=== PATIENT | female | born 1935 | race Caucasian/White ===

== ENCOUNTER → 2024-03-25 14:11 | Outpatient (REF) | payer OTHER, SELFPAY | LOC: RAD 14:11 | PROVIDERS: ATTENDING PHYSICIAN Internal Medicine Cardiovascular Disease; FAMILY PHYSICIAN Family Medicine | DX: R06.00 Dyspnea, unspecified (principal); R79.89 Other specified abnormal findings of blood chemistry | CPT/HCPCS: 71275; Q9967 ==

== ENCOUNTER → 2024-04-14 11:13 | Outpatient (REF) | payer OTHER, SELFPAY | LOC: HWRCS 11:13 | PROVIDERS: ATTENDING PHYSICIAN Internal Medicine Cardiovascular Disease; FAMILY PHYSICIAN Family Medicine | DX: R00.2 Palpitations (principal) | CPT/HCPCS: 93306 ==

== ENCOUNTER → 2024-04-21 13:28 | Outpatient (REF) | payer OTHER, SELFPAY | LOC: RAD 13:28 | PROVIDERS: ATTENDING PHYSICIAN Internal Medicine Cardiovascular Disease; FAMILY PHYSICIAN Family Medicine | DX: J98.6 Disorders of diaphragm (principal) | CPT/HCPCS: 71046; 76000 ==

== ENCOUNTER → 2025-02-02 10:06 | Outpatient (REF) | payer OTHER, SELFPAY | LOC: RAD 10:06 | PROVIDERS: ATTENDING PHYSICIAN Internal Medicine Clinical Cardiac Electrophysiology; FAMILY PHYSICIAN Family Medicine | DX: R06.09 Other forms of dyspnea (principal) | CPT/HCPCS: 75574; Q9967 ==

== ENCOUNTER → 2025-11-08 15:26 | Outpatient (REF) | payer OTHER, SELFPAY | LOC: RAD 15:26 | PROVIDERS: ATTENDING PHYSICIAN Nurse Practitioner Adult Health; FAMILY PHYSICIAN Family Medicine | DX: R06.00 Dyspnea, unspecified (principal) | CPT/HCPCS: 71275; Q9967 ==